=== PATIENT | female | born 1930 | race African-American/Black ===

== ENCOUNTER 2016-10-05 12:59 | Outpatient (RCR) | payer MEDICARE, OTHER ==
[~2016-10-05 12:59] MED LIST: BRIMONIDINE TART5 ML LEFT EYE; COREG25 MG ORAL; ECOTRIN81 MG PO; FOSAMAX70 MG ORAL; FUROSEMIDE40 MG ORAL; HYDRALAZINE HCL50 MG ORAL; KEFLEX500 MG ORAL; LEVOTHYROXINE125 MCG ORAL; XALATAN2.5 ML BOTH EYES
== END 2016-10-22 | disposition home or self-care (01) ==
LOC: WCC 12:59
DX: L97.813 Non-pressure chronic ulcer of other part of right lower leg with necrosis of muscle (principal); L97.812 Non-pressure chronic ulcer of other part of right lower leg with fat layer exposed; R60.0 Localized edema; I89.0 Lymphedema, not elsewhere classified; Z88.6 Allergy status to analgesic agent; I10 Essential (primary) hypertension; I73.9 Peripheral vascular disease, unspecified; Z86.73 Personal history of transient ischemic attack (TIA), and cerebral infarction without residual deficits; M06.9 Rheumatoid arthritis, unspecified
CPT/HCPCS: 11042; 11043; G0463

== ENCOUNTER 2016-11-07 14:26 | Outpatient (RCR) | payer MEDICARE, OTHER | END 2016-11-22 | disposition home or self-care (01) | LOC: WCC 14:26 | DX: L97.813 Non-pressure chronic ulcer of other part of right lower leg with necrosis of muscle (principal); L97.812 Non-pressure chronic ulcer of other part of right lower leg with fat layer exposed; R60.0 Localized edema; I89.0 Lymphedema, not elsewhere classified; I10 Essential (primary) hypertension; Z86.73 Personal history of transient ischemic attack (TIA), and cerebral infarction without residual deficits; Z88.6 Allergy status to analgesic agent; M06.9 Rheumatoid arthritis, unspecified | CPT/HCPCS: G0463 ×2 ==

== ENCOUNTER 2016-11-28 14:30 | Outpatient (RCR) | payer MEDICARE, OTHER | END 2016-12-22 | disposition home or self-care (01) | LOC: WCC 14:30 | DX: L97.813 Non-pressure chronic ulcer of other part of right lower leg with necrosis of muscle (principal); L97.812 Non-pressure chronic ulcer of other part of right lower leg with fat layer exposed; R60.0 Localized edema; I89.0 Lymphedema, not elsewhere classified; Z86.73 Personal history of transient ischemic attack (TIA), and cerebral infarction without residual deficits; M06.9 Rheumatoid arthritis, unspecified; Z88.6 Allergy status to analgesic agent | CPT/HCPCS: G0463 ==